=== PATIENT | female | born 1955 | race Caucasian/White ===

== ENCOUNTER 2017-11-30 09:58 | Inpatient (IN) | payer OTHER ==
[~2017-11-30] VITALS: Ht 162.6 cm; Wt 69.4 kg
--- NOTE | ~2017-11-30 | P ---
[facility] [place] [address] PROCEDURE REPORT Name: YVETTE MORRIS Room #: 432-P [facility] IN M.R.#: [id number] Admission: 11/30/17 Attend Phys: Leidy Quevedo Discharge: Date of : 55 Report #: [id number] THIS REPORT FOR: //name// CC: [facility] physician/PCP Leidy Morris MD BRIEF HISTORY: The patient is a 62-year-old woman with history of hep C and cirrhosis, who presented with hematemesis. She reports she has had esophageal varices in the past. PREOPERATIVE DIAGNOSIS: Hematemesis. POSTOPERATIVE DIAGNOSES: 1. Gastric antral vascular ectasias, nonbleeding. 2. Esophageal varices, not seen today. MEDICATIONS: Deep sedation with propofol per anesthesia. SPECIMEN: None. ESTIMATED BLOOD LOSS: None. PROCEDURE: EGD with argon plasma coagulation of gastric antral vascular ectasias. FINDINGS: Prior to propofol sedation, procedure of EGD and potential banding was discussed with the patient as well as potential risks and its complications. She indicates she understands and desires to proceed. DESCRIPTION OF PROCEDURE: With the patient in left lateral decubitus position, the Olympus video endoscope was inserted in the cervical esophagus under direct vision without difficulty. Examination of this organ through its entire length revealed normal esophageal mucosa down to the squamocolumnar junction. There was no evidence of esophagitis, Cline mucosa or varices. I examined the esophagus on multiple insertions, withdrawal of the scope and definitive esophageal varices were not seen. There was no blood in the esophagus. The scope was advanced in the stomach, which was examined on end view as well as retroflexed views. Examination of the antrum of the stomach revealed mucosa to be intact, but in the immediate prepyloric antrum were multiple ectasias consistent with gastric antral vascular ectasias. Active bleeding was not seen. There were also a few in the more proximal antrum. Upon retroflexion, no mass lesions were seen. Gastric varices were not seen. The pylorus was normal. Duodenum bulb was normal. Duodenal papilla was normal. Postbulbar sweep down the third portion was normal. No blood was seen. At that point, scope was withdrawn back in the stomach and we then used a 7-Hungarian argon plasma coagulation catheter and treated with gastric antral vascular ectasias. The [address] [address] PROCEDURE REPORT Name: YVETTE MORRIS Room #: 432-P [facility] IN M.R.#: [id number] Admission: 11/30/17 Attend Phys: Leidy Quevedo Discharge: Date of : 55 Report #: [id number] patient tolerated procedure well. DISPOSITION: I spoke with her sister Beena Morris MD on the phone. We also discussed her gallstones with dilated common bile duct. She reports that there has been concern over bile duct in the past and she believes last imaging studies reveals to be about 12 mm. That is similar to what was seen on current studies. The patient was scheduled to have an MRCP today, but refused to do so even after Ativan because of complaints of panic attacks. However, since it sounds as if there has been no significant change, we can obtain an ultrasound to further evaluate, but it was found that there has not been significant change in her bile duct. However, her bilirubin is elevated at 3.5 and her sister does not recall of being that elevated in the past. We will monitor liver function studies. In addition, we will have her continue PPI. By: [id number] Jaiden Nicole MD /nt
[2017-11-30 09:59] VITALS: BP 161/74
[2017-11-30 11:46] LABS: CALCIUM 8.4 mg/dL (8.5-10.1); CREATININE 0.9 mg/dL (0.6-1.0); POTASSIUM 3.5 mmol/L (3.5-5.1)
[2017-11-30 11:50] LABS: INR 1.2; PROTIME 12.5 Seconds (9.3-11.4)
[2017-11-30 11:52] LABS: ALBUMIN 2.9 g/dL (3.4-5.0); TOTAL BILIRUBIN 3.7 mg/dL (<0.1-1.0)
[2017-11-30 13:25] LABS: ABSOLUTE NEUTROPHILS 2.1 thou/uL (1.4-8.2); BASOPHILS 0.7 % (0.0-2.0); HEMOGLOBIN 10.7 gm/dL (12.0-15.0); WBC 3.1 thou/uL (4.0-11.0)
[2017-11-30 13:27] LABS: EOSINOPHILS 0.8 % (0.0-3.0); HEMATOCRIT 29.8 % (37.0-47.0); LYMPHOCYTES 23.6 % (24.0-44.0); MCHC 35.9 g/dL (28.0-37.0); MCV 97.4 fL (80.0-100.0); MONOCYTES 5.3 % (1.0-8.0); POLYS 69.6 % (36.0-66.0); RBC 3.07 mil/uL (4.20-5.00); RDW 15.3 % (10.5-14.5)
[2017-11-30 14:05] LABS: PLATELET COUNT 43 thou/uL (150-400); PLATELET ESTIMATE DECREASED; POLYCHROMASIA 1+
[2017-11-30 14:14] VITALS: BP 161/74
[2017-11-30 14:16] LABS: URINE BILIRUBIN NEGATIVE (Negative); URINE BLOOD 3+ (Negative); URINE CLARITY CLOUDY; URINE COLOR YELLOW; URINE GLUCOSE-RANDOM* NEGATIVE (Negative); URINE KETONES NEGATIVE (Negative); URINE LEUKOCYTES-REFLEX 1+ (Negative); URINE NITRITE-REFLEX POSITIVE (Negative); URINE PROTEIN (DIPSTICK) NEGATIVE (Negative); URINE SPECIFIC GRAVITY <= 1.005 (1.005-1.035)
[2017-11-30 14:26] LABS: BACTERIA-REFLEX >30 Many /HPF (None Seen); CASTS None Seen /LPF (None Seen); CRYSTALS None Seen /LPF (None Seen); SQUAMOUS 4-10 Moderate /LPF (0-3); URINE RBC >20 Many /HPF (0-2); WBC CLUMPS Few (None Seen)
[2017-11-30] MEDS ORDERED: ASPIR 8181 MG PO (15:37)
[2017-11-30] MEDS ORDERED: TYLENOL PM EX-1 EACH PO (15:38)
[2017-11-30 17:27] LABS: HEMATOCRIT 33.4 % (37.0-47.0)
[2017-11-30 20:58] VITALS: BP 146/65
[2017-11-30 21:02] LABS: HEMATOCRIT 28.6 % (37.0-47.0); HEMOGLOBIN 10.1 gm/dL (12.0-15.0)
[2017-12-01 04:39] VITALS: BP 177/73
[2017-12-01 06:12] LABS: HAV IgM AB (ANTI-HAV IgM) Negative (Negative); HEPATITIS B SURFACE AG Negative (Negative); HEPATITIS C VIRUS AB >11.0 (0.0-0.9)
[2017-12-01 07:23] LABS: RDW 15.2 % (10.5-14.5)
[2017-12-01 07:25] LABS: HEMOGLOBIN 10.3 gm/dL (12.0-15.0); MCH 35.7 pg (26.0-34.0); MCHC 36.7 g/dL (28.0-37.0); MCV 97.1 fL (80.0-100.0); RBC 2.89 mil/uL (4.20-5.00); WBC 2.8 thou/uL (4.0-11.0)
[2017-12-01 08:03] LABS: INR 1.3; PROTIME 13.2 Seconds (9.3-11.4)
[2017-12-01 08:10] VITALS: BP 154/72
[2017-12-01 19:20] VITALS: BP 159/73
[2017-12-02 04:30] VITALS: BP 146/70
[2017-12-02 06:36] LABS: HEMATOCRIT 26.5 % (37.0-47.0); HEMOGLOBIN 9.7 gm/dL (12.0-15.0); MCH 35.8 pg (26.0-34.0); MCHC 36.8 g/dL (28.0-37.0); MCV 97.5 fL (80.0-100.0); RBC 2.72 mil/uL (4.20-5.00); WBC 2.6 thou/uL (4.0-11.0)
[2017-12-02 06:44] LABS: ALBUMIN 2.2 g/dL (3.4-5.0); CALCIUM 7.4 mg/dL (8.5-10.1); CREATININE 0.8 mg/dL (0.6-1.0); POTASSIUM 3.2 mmol/L (3.5-5.1); TOTAL BILIRUBIN 2.2 mg/dL (<0.1-1.0); TOTAL PROTEIN 5.5 g/dL (6.4-8.2)
[2017-12-02 07:59] VITALS: BP 131/50
[2017-12-02] MEDS ORDERED: CIPRO500 MG PO (09:53)
[2017-12-02] MEDS ORDERED: B-1100 MG PO (09:54)
[2017-12-02] MEDS ORDERED: FOLIC ACID1 MG PO (09:54)
[2017-12-02] MEDS ORDERED: KRISTALOSE20 GM PO (09:57)
[2017-12-02] MEDS ORDERED: OXYCODONE HCL 55 MG PO (10:08)
[2017-12-02 10:23] VITALS: BP 131/50
== END 2017-12-02 11:40 | disposition home or self-care (01) | DRG 377 ==
LOC: ER 09:58 → EROBS 13:41 → 4E 13:41
PROVIDERS: Hospitalist; Nurse Practitioner; Physician Assistant; Specialist
PROC: 0D568ZZ Destruction of Stomach, Via Natural or Artificial Opening Endoscopic (ICD-10-PCS; principal; 2017-12-01)
DX: K92.2 Gastrointestinal hemorrhage, unspecified (principal); E43 Unspecified severe protein-calorie malnutrition; K76.6 Portal hypertension; N39.0 Urinary tract infection, site not specified; K31.819 Angiodysplasia of stomach and duodenum without bleeding; K74.60 Unspecified cirrhosis of liver; I10 Essential (primary) hypertension; J45.909 Unspecified asthma, uncomplicated; K80.20 Calculus of gallbladder without cholecystitis without obstruction; D64.9 Anemia, unspecified; I85.00 Esophageal varices without bleeding; D69.6 Thrombocytopenia, unspecified; G89.4 Chronic pain syndrome; B19.20 Unspecified viral hepatitis C without hepatic coma; Z87.442 Personal history of urinary calculi; Z88.8 Allergy status to other drugs, medicaments and biological substances
CPT/HCPCS: 10183; 62110; 62900; 70005

== ENCOUNTER 2018-03-11 17:56 | Emergency (ER) | payer OTHER ==
[~2018-03-11] VITALS: Ht 162.6 cm; Wt 68.0 kg
[~2018-03-11 17:56] MED LIST: ASPIR 8181 MG PO; B-1100 MG PO; CIPRO500 MG PO; FOLIC ACID1 MG PO; KRISTALOSE20 GM PO; OXYCODONE HCL 55 MG PO; TYLENOL PM EX-1 EACH PO
[2018-03-11] MEDS ORDERED: VENTOLIN HFA 1818 GM INH (19:21)
[2018-03-11] MEDS ORDERED: AMOXICILLIN 50500 M1 PO (19:21)
== END 2018-03-11 20:05 | disposition home or self-care (01) ==
LOC: ER 17:56
DX: J44.9 Chronic obstructive pulmonary disease, unspecified (principal); J06.9 Acute upper respiratory infection, unspecified; G89.4 Chronic pain syndrome; F11.90 Opioid use, unspecified, uncomplicated; F17.200 Nicotine dependence, unspecified, uncomplicated; K74.60 Unspecified cirrhosis of liver; I10 Essential (primary) hypertension; B19.20 Unspecified viral hepatitis C without hepatic coma; Z87.442 Personal history of urinary calculi; Z88.6 Allergy status to analgesic agent; Z88.8 Allergy status to other drugs, medicaments and biological substances